=== PATIENT | female | born 1990 | race Two or more races ===

== ENCOUNTER 2024-03-24 19:36 | Emergency (ER) | payer OTHER ==
[~2024-03-24] VITALS: Ht 154.9 cm; Wt 87.5 kg
[2024-03-24] MEDS ORDERED: ACETAMINOPHEN 500 MG GEL..CAP PO ONE (22:15)
[2024-03-24] MEDS ORDERED: CEFTRIAXONE SODIUM 2,000 MG VIAL IV ONE (22:15)
[2024-03-24 23:11] LABS: HEMATOCRIT 40.4 % (36.0-45.00); HEMOGLOBIN 13.4 g/dL (12.0-15.00); MEAN CELL VOLUME 78.5 fL (80.00-100.00); MEAN CORPUSCULAR HEMOGLOBIN 26.1 pg (27.00-32.0); MEAN CORPUSCULAR HGB CONC 33.3 g/dl (32.0-36.0); PLATELET COUNT 287 K/uL (150-450); RED BLOOD COUNT 5.14 M/uL (4.00-6.00); RED CELL DISTRIBUTION WIDTH 14.1 % (11.5-14.5)
== END 2024-03-25 00:19 | disposition home or self-care (01) ==
LOC: ER 19:37
PROVIDERS: Emergency Medicine
DX: L02.416 Cutaneous abscess of left lower limb (principal); Z91.013 Allergy to seafood

== ENCOUNTER 2024-08-25 15:48 | Emergency (ER) | payer OTHER ==
[~2024-08-25] VITALS: Ht 154.9 cm; Wt 88.0 kg
[2024-08-25] MEDS ORDERED: ACETAMINOPHEN 500 MG GEL..CAP PO ONE ×2 (18:45→18:59)
[2024-08-25] MEDS ORDERED: BENZONATATE 100 MG CAPSULE PO ONE (18:45)
[2024-08-25] MEDS ORDERED: BENZONATATE100 MG PO (22:34)
[2024-08-25] MEDS ORDERED: SINGULAIR10 MG PO (22:34)
[2024-08-25] MEDS ORDERED: AMOX1TAB5 PO (22:34)
== END 2024-08-25 22:42 | disposition home or self-care (01) ==
LOC: ER 15:51
DX: B34.9 Viral infection, unspecified (principal); Z20.822 Contact with and (suspected) exposure to COVID-19; E11.9 Type 2 diabetes mellitus without complications; Z91.013 Allergy to seafood; Z87.09 Personal history of other diseases of the respiratory system